=== PATIENT | male | born 2000 | race Hispanic/Latino ===

== ENCOUNTER 2021-10-01 22:49 | Emergency (ER) | payer SELFPAY | END 2021-10-01 23:17 | LOC: CSHERS 22:49 | DX: S01.01XA Laceration without foreign body of scalp, initial encounter (principal); S00.83XA Contusion of other part of head, initial encounter; F17.210 Nicotine dependence, cigarettes, uncomplicated; Y04.2XXA Assault by strike against or bumped into by another person, initial encounter | CPT/HCPCS: 12001 ==